=== PATIENT | female | born 1945 | race Two or more races ===

== ENCOUNTER 2017-03-19 23:41 | Emergency (ER) | payer SELFPAY ==
[2017-03-20 00:46] LABS: BASOPHIL % 0.5 % (0-2); PLATELET COUNT 221 x10^3mcL (130-400); RED CELL DISTRIBUTION WIDTH 12.6 % (11.5-14.5)
[2017-03-20 01:03] LABS: CALCIUM 8.8 mg/dL (8.5-10.1); CARBON DIOXIDE 28.7 mmol/L (21-32); CHLORIDE SERUM 100 mmol/L (98-107); CREATININE SERUM 0.7 mg/dL (0.6-1.0); GLUCOSE SERUM 105 mg/dL (74-106); POTASSIUM SERUM 3.4 mmol/L (3.5-5.1); SODIUM SERUM 137 mmol/L (136-145)
[2017-03-20 01:20] LABS: ALKALINE PHOSPHATASE 60 U/L (46-116); ALT/SGPT 26 U/L (14-59); AST/SGOT 26 U/L (15-37); BILIRUBIN TOTAL 0.3 mg/dL (0.20-1.00)
[2017-03-20 01:27] LABS: CK-MB 1.3 ng/mL (0-3.6)
[2017-03-20 02:07] VITALS: BP 125/62
== END 2017-03-20 02:07 | disposition home or self-care (01) ==
LOC: ED 23:41
PROVIDERS: Emergency Medicine
DX: R00.2 Palpitations (principal); Z88.2 Allergy status to sulfonamides
CPT/HCPCS: 36415; Q0092

== ENCOUNTER 2019-01-24 22:31 | Emergency (ER) | payer SELFPAY ==
[~2019-01-24] VITALS: Ht 157.5 cm; Wt 51.3 kg
[2019-01-24 22:43] VITALS: Ht 157.5 cm; Wt 51.3 kg
[2019-01-25 00:32] VITALS: BP 123/55
== END 2019-01-25 00:32 | disposition home or self-care (01) ==
LOC: ED 22:31
DX: I10 Essential (primary) hypertension (principal); F41.9 Anxiety disorder, unspecified; M79.7 Fibromyalgia; Z88.1 Allergy status to other antibiotic agents; Z88.2 Allergy status to sulfonamides